=== PATIENT | female | born 1985 | race Caucasian/White ===

== ENCOUNTER 2018-04-19 04:09 | Emergency (ER) | payer MEDICARE, MEDICAID ==
[~2018-04-19] VITALS: Ht 157.5 cm; Wt 136.3 kg
[~2018-04-19 04:09] MED LIST: ARIP5TAB4 PO; BENZ1LOZ61 PO; HYDR-569 PO; KEN0.1O TP; LANS30CA37 PO; LORA-269 PO; MACROBID PO; ONDA8TAB6 PO; ONDA8TAB9 PO
[2018-04-19] MEDS ORDERED: normal saline 1000ML IV soln IVB ONE (04:30)
[2018-04-19] MEDS ORDERED: ondansetron/PF 4mg/2ml inj IV ONE (04:30)
[2018-04-19] MEDS: morphine 4 MG/ML inj SYRINge IV PRN ×2 (04:55→05:52)
[2018-04-19 05:16] LABS: BASOPHILS # (AUTO) 0.1 X10'3 (0-0.2); BASOPHILS % (AUTO) 0.6 % (0-1); EOSINOPHILS # (AUTO) 0.2 X10'3 (0-0.9); EOSINOPHILS % (AUTO) 1.7 % (0-6); HEMATOCRIT 41.3 % (35.0-45.0); HEMOGLOBIN 13.8 g/dl (12.0-16.0); LYMPHOCYTES # (AUTO) 3.2 X10'3 (1.1-4.8); MEAN CORPUSCULAR HEMOGLOBIN 29.1 PG (27.0-31.0); MEAN CORPUSCULAR HGB CONC 33.4 % (33.0-36.5); MEAN CORPUSCULAR VOLUME 87.2 FL (78-98); MEAN PLATELET VOLUME 9.5 FL (7.4-10.4); MONOCYTES # (AUTO) 0.6 X10'3 (0-0.9); MONOCYTES % (AUTO) 4.5 % (2-12); NEUTROPHILS # (AUTO) 9.3 X10'3 (1.8-7.7); NEUTROPHILS % (AUTO) 69.2 % (42-75); PLATELET COUNT 377 X10'3 (140-440); RED BLOOD COUNT 4.73 X10'6 (4.20-5.60); RED CELL DISTRIBUTION WIDTH 13.7 % (11.5-14.5); WHITE BLOOD COUNT 13.4 X10'3 (4.5-11.0)
[2018-04-19 05:19] LABS: ALANINE AMINOTRANSFERASE 26 U/L (12-78); ALBUMIN 3.1 G/DL (3.4-5.0); ALBUMIN/GLOBULIN RATIO 0.6 (1.1-1.5); ALKALINE PHOSPHATASE 80 IU/L (46-116); ANION GAP 17 (8-16); ASPARTATE AMINO TRANSFERASE 19 U/L (10-37); BILIRUBIN,TOTAL 0.2 MG/DL (0.1-1.0); BLOOD UREA NITROGEN 9 MG/DL (7-18); BUN/CREATININE RATIO 11.1 (6.6-38.0); CALCIUM 9.2 MG/DL (8.5-10.1); CHLORIDE 104 MMOL/L (99-107); CREATININE 0.81 MG/DL (0.40-0.90); GLUCOSE 110 MG/DL (70-104); LIPASE 148 U/L (73-393); POTASSIUM 3.7 MMOL/L (3.5-5.1); SODIUM 141 MMOL/L (135-145); TOTAL CARBON DIOXIDE 20.2 MMOL/L (24-32); TOTAL PROTEIN 7.9 G/DL (6.4-8.2); eGFR 80 ML/MIN
[2018-04-19] MEDS ORDERED: ONDA4TAB9 SL (05:46)
[2018-04-19] MEDS ORDERED: morphine 4 MG/ML inj SYRINge IV ONE (05:50)
[2018-04-19 06:00] LABS: URINE HCG NEGATIVE (NEG)
[2018-04-19 06:07] LABS: CLARITY,URINE CLEAR (Clear); COLOR,URINE YELLOW (Yellow); GLUCOSE, URINE NEGATIVE (Neg); KETONES,URINE NEGATIVE (Neg); LEUKOCYTE ESTERASE ,URINE NEGATIVE (Neg); NITRITES, URINE NEGATIVE (Neg); OCCULT BLOOD,URINE TRACE-INTACT (Neg); PH,URINE 5.5 (4.8-8.0); PROTEIN,URINE NEGATIVE (Neg); UROBILINOGEN,URINE 0.2 E.U/dL (0.2-1.0)
[2018-04-19 06:08] VITALS: BP 157/92
[2018-04-19 06:10] LABS: UA COLLECTION TYPE VOIDED
[2018-04-19 06:18] LABS: BACTERIA,URINE 1+ /HPF (Neg); MUCUS STRANDS MANY /LPF (Neg); RBC,URINE 0-2 /HPF (0-2); SQUAMOUS EPITHELIAL CELL,UR MANY /LPF (FEW); WBC,URINE 0-4 /HPF (0-4)
[2018-04-19 06:19] LABS: AMORPHOUS URATES 1+; CAL OXALATE CRYSTALS 1+ /HPF (NEGATIVE); HYALINE CASTS 0-3 /LPF (NEGATIVE)
== END 2018-04-19 06:13 | disposition home or self-care (01) ==
LOC: ER 04:10
DX: K52.9 Noninfective gastroenteritis and colitis, unspecified (principal); G89.29 Other chronic pain; Z90.49 Acquired absence of other specified parts of digestive tract; Z98.890 Other specified postprocedural states; Z60.2 Problems related to living alone; Z88.2 Allergy status to sulfonamides; Z88.5 Allergy status to narcotic agent; Z79.899 Other long term (current) drug therapy
CPT/HCPCS: 36415; 74176; 80053; 81001; 81025; 83690; 85025; 96361; 96374; 96375; 99285; J2270; J2405

== ENCOUNTER 2018-08-18 21:17 | Emergency (ER) | payer MEDICARE, MEDICAID ==
[~2018-08-18] VITALS: Ht 157.5 cm; Wt 150.9 kg
[~2018-08-18 21:17] MED LIST changes: +HYDR-4383 PO; -HYDR-569 PO
[2018-08-18 21:21] VITALS: BP 164/99
[2018-08-18] MEDS ORDERED: PRED20TA PO (22:11)
[2018-08-18] MEDS ORDERED: BENZ-38 PO (22:11)
[2018-08-18] MEDS ORDERED: ALBU6.7H INH (22:11)
[2018-08-18] MEDS ORDERED: AZIT250T2 PO (22:11)
== END 2018-08-18 22:22 | disposition home or self-care (01) ==
LOC: ER 21:18
DX: J45.901 Unspecified asthma with (acute) exacerbation (principal); J06.9 Acute upper respiratory infection, unspecified; G89.29 Other chronic pain; F17.200 Nicotine dependence, unspecified, uncomplicated; Z90.49 Acquired absence of other specified parts of digestive tract; Z98.890 Other specified postprocedural states; Z88.2 Allergy status to sulfonamides; Z88.5 Allergy status to narcotic agent; Z79.899 Other long term (current) drug therapy; Z60.2 Problems related to living alone
CPT/HCPCS: 99283

== ENCOUNTER 2019-10-30 20:12 | Emergency (ER) | payer MEDICARE, MEDICAID ==
[~2019-10-30] VITALS: Ht 154.9 cm; Wt 142.2 kg
[~2019-10-30 20:12] MED LIST changes: +ALBU6.7H9 INH; +ARIP5TAB14 PO; -ARIP5TAB4 PO
[2019-10-30 20:25] VITALS: BP 148/86
[2019-10-30 20:54] LABS: CLARITY,URINE SLIGHTLY CLOUDY (Clear); COLOR,URINE YELLOW (Yellow); GLUCOSE, URINE NEGATIVE (Neg); KETONES,URINE TRACE mg/dl (Neg); LEUKOCYTE ESTERASE ,URINE NEGATIVE (Neg); NITRITES, URINE NEGATIVE (Neg); OCCULT BLOOD,URINE NEGATIVE (Neg); PH,URINE 5.5 (4.8-8.0); PROTEIN,URINE NEGATIVE (Neg); UROBILINOGEN,URINE 0.2 E.U/dL (0.2-1.0)
--- NOTE | 2019-10-30 21:00 | NUR ---
[phone]
[2019-10-30 21:01] LABS: UA COLLECTION TYPE NON-SPECIFIED
[2019-10-30 21:04] LABS: BACTERIA,URINE FEW /HPF (Neg); RBC,URINE NONE SEEN /HPF (0-2); SQUAMOUS EPITHELIAL CELL,UR MANY /LPF (FEW); WBC CLUMPS,URINE FEW /HPF (NEGATIVE); WBC,URINE 0-4 /HPF (0-4)
--- NOTE | 2019-10-30 21:11 | NUR ---
PATIENTS FRIEND CALLED "" FOR RIDE HOME WHEN PATIENT IS DISCHARGED LEFT PHONE #[phone]
[2019-10-30 22:10] LABS: BASOPHILS # (AUTO) 0.1 X10'3 (0-0.2); BASOPHILS % (AUTO) 0.9 % (0-1); EOSINOPHILS # (AUTO) 0.1 X10'3 (0-0.9); HEMATOCRIT 39.6 % (35.0-45.0); HEMOGLOBIN 13.4 g/dl (12.0-16.0); LYMPHOCYTES # (AUTO) 3.2 X10'3 (1.1-4.8); LYMPHOCYTES % (AUTO) 28.3 % (21-51); MEAN CORPUSCULAR HEMOGLOBIN 29.7 PG (27.0-31.0); MEAN CORPUSCULAR HGB CONC 33.7 g/dL (33.0-36.5); MEAN PLATELET VOLUME 8.2 FL (7.4-10.4); MONOCYTES # (AUTO) 0.6 X10'3 (0-0.9); MONOCYTES % (AUTO) 5.2 % (2-12); NEUTROPHILS # (AUTO) 7.4 X10'3 (1.8-7.7); NEUTROPHILS % (AUTO) 64.6 % (42-75); PLATELET COUNT 347 X10'3 (140-440); RED CELL DISTRIBUTION WIDTH 13.1 % (11.5-14.5); WHITE BLOOD COUNT 11.4 X10'3 (4.5-11.0)
[2019-10-30 22:21] LABS: ALANINE AMINOTRANSFERASE 16 U/L (12-78); ALBUMIN 2.9 G/DL (3.4-5.0); ALBUMIN/GLOBULIN RATIO 0.6 (1.1-1.5); ALKALINE PHOSPHATASE 82 IU/L (46-116); ANION GAP 9 (8-16); ASPARTATE AMINO TRANSFERASE 16 U/L (10-37); BILIRUBIN,TOTAL 0.2 MG/DL (0.1-1.0); BLOOD UREA NITROGEN 11 MG/DL (7-18); BUN/CREATININE RATIO 13.4 (6.6-38.0); CALCIUM 8.8 MG/DL (8.5-10.1); CHLORIDE 107 MMOL/L (99-107); CREATININE 0.82 MG/DL (0.40-0.90); GLUCOSE 121 MG/DL (70-104); POTASSIUM 3.8 MMOL/L (3.5-5.1); SODIUM 140 MMOL/L (135-145); TOTAL CARBON DIOXIDE 23.6 MMOL/L (24-32); TOTAL PROTEIN 7.8 G/DL (6.4-8.2); eGFR 79 ML/MIN
[2019-10-30 22:29] LABS: LIPASE 184 U/L (73-393)
[2019-10-30 22:42] LABS: URINE HCG NEGATIVE (NEG)
== END 2019-10-30 23:17 | disposition home or self-care (01) ==
LOC: ER 20:12
DX: R42 Dizziness and giddiness (principal); K21.9 Gastro-esophageal reflux disease without esophagitis; G89.29 Other chronic pain; F41.9 Anxiety disorder, unspecified; F32.9 Major depressive disorder, single episode, unspecified; Z90.49 Acquired absence of other specified parts of digestive tract; Z87.891 Personal history of nicotine dependence; Z98.890 Other specified postprocedural states; Z60.2 Problems related to living alone; Z88.2 Allergy status to sulfonamides; Z88.5 Allergy status to narcotic agent; Z79.899 Other long term (current) drug therapy
CPT/HCPCS: 36415; 80053; 81001; 81025; 82948; 83690; 84443; 85025; 99283

== ENCOUNTER 2019-12-22 07:19 | Day surgery (SDC) | payer MEDICARE, MEDICAID ==
[2019-12-15 14:17] LABS: BASOPHILS # (AUTO) 0.1 X10'3 (0-0.2); BASOPHILS % (AUTO) 0.6 % (0-1); EOSINOPHILS # (AUTO) 0.2 X10'3 (0-0.9); EOSINOPHILS % (AUTO) 1.6 % (0-6); LYMPHOCYTES # (AUTO) 2.4 X10'3 (1.1-4.8); LYMPHOCYTES % (AUTO) 22.3 % (21-51); MEAN CORPUSCULAR HEMOGLOBIN 29.7 PG (27.0-31.0); MEAN CORPUSCULAR HGB CONC 34.1 g/dL (33.0-36.5); MEAN PLATELET VOLUME 8.4 FL (7.4-10.4); MONOCYTES # (AUTO) 0.7 X10'3 (0-0.9); MONOCYTES % (AUTO) 6.6 % (2-12); NEUTROPHILS # (AUTO) 7.5 X10'3 (1.8-7.7); NEUTROPHILS % (AUTO) 68.9 % (42-75); PRE OP HEMATOCRIT 39.8 % (35.0-45.0); PRE OP HEMOGLOBIN 13.6 g/dL (12.0-16.0); PRE OP PLATELET COUNT 307 X10'3 (140-440); RED BLOOD COUNT 4.57 X10'6 (4.20-5.60); RED CELL DISTRIBUTION WIDTH 13.4 % (11.5-14.5)
[2019-12-15 14:32] LABS: ALBUMIN 3.2 G/DL (3.4-5.0); ALBUMIN/GLOBULIN RATIO 0.7 (1.1-1.5); ALKALINE PHOSPHATASE 95 IU/L (46-116); BLOOD UREA NITROGEN 9 MG/DL (7-18); BUN/CREATININE RATIO 11.1 (6.6-38.0); CALCIUM 8.9 MG/DL (8.5-10.1); CHLORIDE 104 MMOL/L (99-107); CREATININE 0.81 MG/DL (0.40-0.90); PRE OP ALT 30 U/L (30-65); PRE OP ANION GAP 9 (8-16); PRE OP AST 24 U/L (10-37); PRE OP BILIRUB, TOTAL 0.3 MG/DL (0.0-1.0); PRE OP GLUCOSE 81 MG/DL (70-104); PRE OP POTASSIUM 3.8 MMOL/L (3.4-5.1); PRE OP SODIUM 136 MMOL/L (135-145); TOTAL CARBON DIOXIDE 23.4 MMOL/L (24-32); TOTAL PROTEIN 7.8 G/DL (6.4-8.2); eGFR 80 ML/MIN
[2019-12-15 14:47] LABS: HCG SERUM QL NEGATIVE
[~2019-12-22] VITALS: Ht 157.5 cm; Wt 144.0 kg
[2019-12-22] VITALS (11 sets, daily range): BP systolic 118–131; BP diastolic 72–90
[~2019-12-22 07:19] MED LIST changes: -ALBU6.7H9 INH; -ARIP5TAB14 PO; +ASCO-134 PO; -BENZ1LOZ61 PO; -HYDR-4383 PO; +IBUP-1984 PO; -KEN0.1O TP; -LANS30CA37 PO; -LORA-269 PO; -MACROBID PO; +MULT-1085 PO; +OMEP-50 PO; -ONDA8TAB6 PO; -ONDA8TAB9 PO; +VENL150C58 PO; +famotidine 20mg tablet PO ONE; +ringers solution, lacted 1,000 ML IV SCH
[2019-12-22] MEDS ORDERED: ringers solution, lacted 1,000 ML IV SCH (07:52)
[2019-12-22] MEDS ORDERED: meperidine/PF 25mg/ml syringe IV PRN ×3 (07:55)
[2019-12-22] MEDS ORDERED: morphine 2 MG/ML inj. syringe IV PRN (07:55)
[2019-12-22] MEDS ORDERED: proCHLORperazine 10 MG/2 ml inj IV PRN (07:55)
[2019-12-22] MEDS ORDERED: morphine 4 MG/ML inj SYRINge IV PRN (07:55)
[2019-12-22] MEDS ORDERED: ondansetron/PF 4mg/2ml inj IV PRN (07:55)
[2019-12-22] MEDS ORDERED: fentaNYL/PF 50MCG/1 ML 2ML syringe ONE (10:27)
[2019-12-22] MEDS ORDERED: midazolam 2 mg/2 ml injection ONE (10:27)
[2019-12-22] MEDS ORDERED: desflurane 240ml liquid inh. IH ONE (10:55)
[2019-12-22] MEDS ORDERED: ketorolac trometh. 30mg/ml inj. ONE ×2 (10:55→11:43)
[2019-12-22] MEDS ORDERED: neostigmine methylsulfate 1 MG/ML 10ml vial ONE (10:55)
[2019-12-22] MEDS ORDERED: acetaminophen 1000 MG/100ml vial IV ONE (10:55)
[2019-12-22] MEDS ORDERED: glycopyrrolate 0.2mg/ml inj ONE (10:55)
[2019-12-22] MEDS ORDERED: dexamethasone sod phosphate 10mg/ml inj ONE (10:55)
[2019-12-22] MEDS ORDERED: propofol inj 20 ML IV ONE (11:43)
[2019-12-22] MEDS ORDERED: rocuronium 10mg/ml inj IV ONE (11:43)
[2019-12-22] MEDS ORDERED: ondansetron/PF 4mg/2ml inj ONE (11:43)
[2019-12-22] MEDS ORDERED: LIDOcaine 2% (20mg/ml) 5ml vial ONE (11:43)
--- NOTE | 2019-12-22 11:57 | NUR ---
Received from OR via [facility], accompanied by Anesthesiologist DR WALTER and report given by Anesthesiologist. PT DROWSY, DENIES PAIN, ALBERT PAD IN PLACE, NO DRAINAGE. Addendum: 12/22/19 at 1224 by Sonya Golden RN Amended: Links added.
[2019-12-22] MEDS ORDERED: traMADol 50MG tablet PO ONE (13:10)
--- NOTE | 2019-12-22 13:37 | NUR ---
PT GIVEN PAIN MEDICATION FOR RIDE HOME AND TIME TO HUMAN RESOURCES TEMP HER PRESCRIPTION, PTS SENIOR MANUFACTURING ENGINEER PRESENT, D/C INSTRUCTIONS GIVEN AND GONE OVER W/BOTH WHOM VERBALIZED UNDERSTANDING. PT D/CD TO HOME VIA W/C TO PRIVATE VEHICLE W/O INCIDENT. Addendum: 12/22/19 at 1402 by Sonya Golden RN Amended: Links added.
== END 2019-12-22 13:37 | disposition home or self-care (01) ==
LOC: PAS 07:19
PROVIDERS: ATTEND Obstetrics & Gynecology
DX: Z30.2 Encounter for sterilization (principal); J44.9 Chronic obstructive pulmonary disease, unspecified; K21.9 Gastro-esophageal reflux disease without esophagitis; G47.30 Sleep apnea, unspecified; F17.210 Nicotine dependence, cigarettes, uncomplicated; G89.29 Other chronic pain; F32.9 Major depressive disorder, single episode, unspecified; F41.9 Anxiety disorder, unspecified; E66.01 Morbid (severe) obesity due to excess calories; Z68.43 Body mass index [BMI] 50.0-59.9, adult; Z11.59 Encounter for screening for other viral diseases; Z90.49 Acquired absence of other specified parts of digestive tract; Z98.890 Other specified postprocedural states; Z88.5 Allergy status to narcotic agent; Z88.2 Allergy status to sulfonamides; Z87.440 Personal history of urinary (tract) infections; Z79.899 Other long term (current) drug therapy
CPT/HCPCS: 36415; 58670; 80053; 82948; 84703; 85025; J0131; J1100; J1885; J2001; J2175; J2250; J2405; J2704; J2710; J3010; J7120; U0003; A4618; A7000; J3490

== ENCOUNTER 2020-01-11 15:14 | Emergency (ER) | payer MEDICARE, MEDICAID ==
[~2020-01-11] VITALS: Ht 157.5 cm; Wt 145.0 kg
[~2020-01-11 15:14] MED LIST changes: -famotidine 20mg tablet PO ONE; -ringers solution, lacted 1,000 ML IV SCH
[2020-01-11 15:35] LABS: URINE HCG NEGATIVE (NEG)
[2020-01-11 15:39] LABS: CLARITY,URINE CLOUDY (Clear); GLUCOSE, URINE NEGATIVE (Neg); KETONES,URINE NEGATIVE (Neg); LEUKOCYTE ESTERASE ,URINE LARGE (Neg); NITRITES, URINE NEGATIVE (Neg); OCCULT BLOOD,URINE MODERATE (Neg); PROTEIN,URINE NEGATIVE (Neg); UROBILINOGEN,URINE 0.2 E.U/dL (0.2-1.0)
[2020-01-11 15:47] LABS: COLOR,URINE DARK YELLOW (Yellow); UA COLLECTION TYPE CLN CATCH MIDSTREAM
[2020-01-11 15:50] LABS: BACTERIA,URINE 4+ /HPF (Neg); MUCUS STRANDS FEW /LPF (Neg); RBC,URINE 0-2 /HPF (0-2); SQUAMOUS EPITHELIAL CELL,UR MANY /LPF (FEW)
[2020-01-11 17:06] LABS: BASOPHILS # (AUTO) 0.1 X10'3 (0-0.2); BASOPHILS % (AUTO) 0.8 % (0-1); EOSINOPHILS # (AUTO) 0.1 X10'3 (0-0.9); EOSINOPHILS % (AUTO) 1.3 % (0-6); HEMATOCRIT 42.3 % (35.0-45.0); HEMOGLOBIN 14.5 g/dl (12.0-16.0); LYMPHOCYTES # (AUTO) 2.9 X10'3 (1.1-4.8); LYMPHOCYTES % (AUTO) 30.9 % (21-51); MEAN CORPUSCULAR HEMOGLOBIN 30.2 PG (27.0-31.0); MEAN CORPUSCULAR HGB CONC 34.3 g/dL (33.0-36.5); MEAN PLATELET VOLUME 8.4 FL (7.4-10.4); MONOCYTES # (AUTO) 0.5 X10'3 (0-0.9); MONOCYTES % (AUTO) 5.2 % (2-12); NEUTROPHILS # (AUTO) 5.8 X10'3 (1.8-7.7); NEUTROPHILS % (AUTO) 61.8 % (42-75); PLATELET COUNT 348 X10'3 (140-440); RED BLOOD COUNT 4.81 X10'6 (4.20-5.60); RED CELL DISTRIBUTION WIDTH 13.3 % (11.5-14.5); WHITE BLOOD COUNT 9.4 X10'3 (4.5-11.0)
[2020-01-11 17:21] LABS: ALANINE AMINOTRANSFERASE 47 U/L (12-78); ALBUMIN 3.3 G/DL (3.4-5.0); ALBUMIN/GLOBULIN RATIO 0.7 (1.1-1.5); ALKALINE PHOSPHATASE 109 IU/L (46-116); ANION GAP 6 (8-16); ASPARTATE AMINO TRANSFERASE 37 U/L (10-37); BILIRUBIN,TOTAL 0.2 MG/DL (0.1-1.0); BLOOD UREA NITROGEN 6 MG/DL (7-18); BUN/CREATININE RATIO 7.7 (6.6-38.0); CALCIUM 8.8 MG/DL (8.5-10.1); CHLORIDE 106 MMOL/L (99-107); CREATININE 0.78 MG/DL (0.40-0.90); GLUCOSE 87 MG/DL (70-104); SODIUM 140 MMOL/L (135-145); TOTAL CARBON DIOXIDE 27.8 MMOL/L (24-32); TOTAL PROTEIN 7.9 G/DL (6.4-8.2); eGFR 84 ML/MIN
[2020-01-11] MEDS ORDERED: CEPH-572 PO (17:28)
[2020-01-11 17:52] VITALS: BP 116/74
== END 2020-01-11 18:01 | disposition home or self-care (01) ==
LOC: ER 15:15
DX: N93.9 Abnormal uterine and vaginal bleeding, unspecified (principal); N39.0 Urinary tract infection, site not specified; K21.9 Gastro-esophageal reflux disease without esophagitis; G89.29 Other chronic pain; F41.9 Anxiety disorder, unspecified; F32.9 Major depressive disorder, single episode, unspecified; Z87.440 Personal history of urinary (tract) infections; Z90.49 Acquired absence of other specified parts of digestive tract; Z98.51 Tubal ligation status; Z98.890 Other specified postprocedural states; Z60.2 Problems related to living alone; Z88.2 Allergy status to sulfonamides; Z88.5 Allergy status to narcotic agent; Z79.2 Long term (current) use of antibiotics; Z79.899 Other long term (current) drug therapy
CPT/HCPCS: 36415; 76856; 80053; 81001; 81025; 85025; 86885; 86900; 86901; 99284

== ENCOUNTER 2020-03-17 21:11 | Emergency (ER) | payer MEDICARE, MEDICAID ==
[~2020-03-17] VITALS: Ht 157.5 cm; Wt 139.6 kg
[2020-03-17 21:51] LABS: BASOPHILS # (AUTO) 0.1 X10'3 (0-0.2); BASOPHILS % (AUTO) 0.8 % (0-1); EOSINOPHILS # (AUTO) 0.2 X10'3 (0-0.9); EOSINOPHILS % (AUTO) 1.7 % (0-6); HEMATOCRIT 39.1 % (35.0-45.0); HEMOGLOBIN 13.4 g/dl (12.0-16.0); LYMPHOCYTES # (AUTO) 2.9 X10'3 (1.1-4.8); LYMPHOCYTES % (AUTO) 28.3 % (21-51); MEAN CORPUSCULAR HGB CONC 34.1 g/dL (33.0-36.5); MEAN CORPUSCULAR VOLUME 87.8 FL (78-98); MEAN PLATELET VOLUME 8.6 FL (7.4-10.4); MONOCYTES # (AUTO) 0.7 X10'3 (0-0.9); MONOCYTES % (AUTO) 6.4 % (2-12); NEUTROPHILS # (AUTO) 6.5 X10'3 (1.8-7.7); NEUTROPHILS % (AUTO) 62.8 % (42-75); PLATELET COUNT 335 X10'3 (140-440); RED BLOOD COUNT 4.46 X10'6 (4.20-5.60); RED CELL DISTRIBUTION WIDTH 13.1 % (11.5-14.5); WHITE BLOOD COUNT 10.3 X10'3 (4.5-11.0)
[2020-03-17] MEDS ORDERED: iohexol 350MG/ML 100ml bottle IV ONE (22:07)
[2020-03-17 22:12] LABS: ALANINE AMINOTRANSFERASE 31 U/L (12-78); ALBUMIN 3.2 G/DL (3.4-5.0); ALBUMIN/GLOBULIN RATIO 0.7 (1.1-1.5); ALKALINE PHOSPHATASE 101 IU/L (46-116); ANION GAP 11 (8-16); ASPARTATE AMINO TRANSFERASE 24 U/L (10-37); BILIRUBIN,TOTAL 0.2 MG/DL (0.1-1.0); BLOOD UREA NITROGEN 8 MG/DL (7-18); CALCIUM 8.5 MG/DL (8.5-10.1); CHLORIDE 105 MMOL/L (99-107); CREATININE 0.89 MG/DL (0.40-0.90); GLUCOSE 120 MG/DL (70-104); POTASSIUM 3.7 MMOL/L (3.5-5.1); SODIUM 139 MMOL/L (135-145); TOTAL CARBON DIOXIDE 23.1 MMOL/L (24-32); TOTAL PROTEIN 7.6 G/DL (6.4-8.2); eGFR 71 ML/MIN
[2020-03-17 22:17] LABS: HCG SERUM QL NEGATIVE
[2020-03-17] MEDS ORDERED: ketorolac tromethamine 15mg/ml inj. IV ONE (22:55)
[2020-03-17] MEDS ORDERED: orphenadrine citrate 60mg/2ml inj. IM ONE (22:55)
[2020-03-17 23:07] LABS: LIPASE 183 U/L (73-393)
[2020-03-17] MEDS ORDERED: LIDO1ADH TOP (23:22)
[2020-03-17] MEDS ORDERED: CYCL-1 PO (23:22)
[2020-03-17 23:30] VITALS: BP 123/75
== END 2020-03-17 23:31 | disposition home or self-care (01) ==
LOC: ER 21:11
DX: M54.9 Dorsalgia, unspecified (principal); R07.89 Other chest pain; K21.9 Gastro-esophageal reflux disease without esophagitis; G89.29 Other chronic pain; F41.9 Anxiety disorder, unspecified; F32.9 Major depressive disorder, single episode, unspecified; Z98.51 Tubal ligation status; Z90.49 Acquired absence of other specified parts of digestive tract; Z98.890 Other specified postprocedural states; Z88.2 Allergy status to sulfonamides; Z88.5 Allergy status to narcotic agent; Z79.899 Other long term (current) drug therapy
CPT/HCPCS: 36415; 71045; 71275; 80053; 83690; 83880; 84484; 84703; 85025; 93005; 96372; 96374; 99285; J1885; J2360; Q9967

== ENCOUNTER 2020-04-28 21:30 | Emergency (ER) | payer MEDICARE, MEDICAID ==
[~2020-04-28] VITALS: Ht 157.5 cm; Wt 147.8 kg
[~2020-04-28 21:30] MED LIST changes: +CYCL-1 PO; +LIDO1ADH TOP
[2020-04-28 22:01] VITALS: BP 145/94
== END 2020-04-28 22:44 | disposition home or self-care (01) ==
LOC: ER 21:31
DX: B34.9 Viral infection, unspecified (principal); J34.89 Other specified disorders of nose and nasal sinuses; R06.02 Shortness of breath; R52 Pain, unspecified; K21.9 Gastro-esophageal reflux disease without esophagitis; G89.29 Other chronic pain; F41.9 Anxiety disorder, unspecified; F32.9 Major depressive disorder, single episode, unspecified; F17.200 Nicotine dependence, unspecified, uncomplicated; Z90.49 Acquired absence of other specified parts of digestive tract; Z98.51 Tubal ligation status; Z98.890 Other specified postprocedural states; Z88.2 Allergy status to sulfonamides; Z88.5 Allergy status to narcotic agent; Z79.899 Other long term (current) drug therapy
CPT/HCPCS: 36415; 99281

== ENCOUNTER 2020-09-10 19:13 | Emergency (ER) | payer MEDICARE, MEDICAID ==
[~2020-09-10] VITALS: Ht 157.5 cm; Wt 147.0 kg
[2020-09-10 20:02] LABS: CLARITY,URINE CLEAR (Clear); COLOR,URINE YELLOW (Yellow); GLUCOSE, URINE NEGATIVE (Neg); KETONES,URINE NEGATIVE (Neg); LEUKOCYTE ESTERASE ,URINE NEGATIVE (Neg); NITRITES, URINE NEGATIVE (Neg); OCCULT BLOOD,URINE MODERATE (Neg); PH,URINE 5.5 (4.8-8.0); PROTEIN,URINE NEGATIVE (Neg); UROBILINOGEN,URINE 0.2 E.U/dL (0.2-1.0)
[2020-09-10 20:03] LABS: UA COLLECTION TYPE OTHER
[2020-09-10 20:04] LABS: URINE HCG NEGATIVE (NEG)
[2020-09-10 20:09] LABS: BACTERIA,URINE FEW /HPF (Neg); SQUAMOUS EPITHELIAL CELL,UR FEW /LPF (FEW); WBC,URINE 0-4 /HPF (0-4)
[2020-09-10 21:14] LABS: BASOPHILS # (AUTO) 0.1 X10'3 (0-0.2); BASOPHILS % (AUTO) 0.9 % (0-1); EOSINOPHILS # (AUTO) 0.1 X10'3 (0-0.9); EOSINOPHILS % (AUTO) 1.1 % (0-6); HEMATOCRIT 37.7 % (35.0-45.0); LYMPHOCYTES # (AUTO) 2.7 X10'3 (1.1-4.8); LYMPHOCYTES % (AUTO) 28.2 % (21-51); MEAN CORPUSCULAR HGB CONC 34.5 g/dL (33.0-36.5); MEAN CORPUSCULAR VOLUME 86.8 FL (78-98); MEAN PLATELET VOLUME 8.4 FL (7.4-10.4); MONOCYTES # (AUTO) 0.7 X10'3 (0-0.9); MONOCYTES % (AUTO) 7.4 % (2-12); NEUTROPHILS % (AUTO) 62.4 % (42-75); PLATELET COUNT 318 X10'3 (140-440); RED BLOOD COUNT 4.35 X10'6 (4.20-5.60); WHITE BLOOD COUNT 9.6 X10'3 (4.5-11.0)
[2020-09-10 21:28] VITALS: BP 146/99
[2020-09-10 21:35] LABS: ALANINE AMINOTRANSFERASE 37 U/L (12-78); ALBUMIN 3.1 G/DL (3.4-5.0); ALBUMIN/GLOBULIN RATIO 0.7 (1.1-1.5); ALKALINE PHOSPHATASE 101 IU/L (46-116); ANION GAP 11 (8-16); ASPARTATE AMINO TRANSFERASE 29 U/L (10-37); BILIRUBIN,TOTAL 0.2 MG/DL (0.1-1.0); BLOOD UREA NITROGEN 8 MG/DL (7-18); BUN/CREATININE RATIO 10.5 (6.6-38.0); CALCIUM 9.3 MG/DL (8.5-10.1); CHLORIDE 104 MMOL/L (99-107); CREATININE 0.76 MG/DL (0.40-0.90); GLUCOSE 111 MG/DL (70-104); LIPASE 137 U/L (73-393); POTASSIUM 3.6 MMOL/L (3.5-5.1); SODIUM 139 MMOL/L (135-145); TOTAL CARBON DIOXIDE 23.9 MMOL/L (24-32); TOTAL PROTEIN 7.8 G/DL (6.4-8.2); eGFR 86 ML/MIN
[2020-09-10] MEDS ORDERED: PROCHC RC (21:53)
== END 2020-09-10 22:18 | disposition home or self-care (01) ==
LOC: ER 19:14
DX: K62.5 Hemorrhage of anus and rectum (principal); K59.00 Constipation, unspecified; M25.552 Pain in left hip; K21.9 Gastro-esophageal reflux disease without esophagitis; G89.29 Other chronic pain; F41.9 Anxiety disorder, unspecified; F32.9 Major depressive disorder, single episode, unspecified; Z87.440 Personal history of urinary (tract) infections; Z90.49 Acquired absence of other specified parts of digestive tract; Z98.51 Tubal ligation status; Z98.890 Other specified postprocedural states; Z60.2 Problems related to living alone; Z88.2 Allergy status to sulfonamides; Z88.5 Allergy status to narcotic agent; Z79.899 Other long term (current) drug therapy
CPT/HCPCS: 36415; 80053; 81001; 81025; 83690; 85025; 86885; 86900; 86901; 99283